=== PATIENT | female | born 1935 | race Caucasian/White ===

== ENCOUNTER 2017-12-18 10:03 | Inpatient (IN) | payer OTHER ==
[~2017-12-18] VITALS: Ht 165.1 cm; Wt 72.6 kg
[~2017-12-18 10:03] MED LIST: ARICEPT10 MG PO; ATIVAN1 MG PO; CELEXA40 MG PO; GLIMEPIRIDE2 MG PO; NAMENDA10 MG PO; NEURONTIN300 MG PO; SEROQUEL300 MG PO; ZANTAC300 MG PO
== END 2017-12-23 19:37 | disposition home or self-care (01) | DRG 331 ==
LOC: SURH 12-20 09:00 → O/R 12-20 09:27 → SURH 12-20 09:39
PROVIDERS: Surgery
PROC: 0DTP4ZZ Resection of Rectum, Percutaneous Endoscopic Approach (ICD-10-PCS; 2017-12-20)
PROC: 0DQR0ZZ Repair Anal Sphincter, Open Approach (ICD-10-PCS; 2017-12-20)
PROC: 0DJD8ZZ Inspection of Lower Intestinal Tract, Via Natural or Artificial Opening Endoscopic (ICD-10-PCS; 2017-12-20)
PROC: 0DTN0ZZ Resection of Sigmoid Colon, Open Approach (ICD-10-PCS; principal; 2017-12-20 09:00)
PROC: 4A033R1 Measurement of Arterial Saturation, Peripheral, Percutaneous Approach (ICD-10-PCS; 2017-12-21)
PROC: 3E0F7GC Introduction of Other Therapeutic Substance into Respiratory Tract, Via Natural or Artificial Opening (ICD-10-PCS; 2017-12-21)
DX: K62.3 Rectal prolapse (principal); R15.9 Full incontinence of feces; E11.9 Type 2 diabetes mellitus without complications; G30.8 Other Alzheimer's disease; F02.80 Dementia in other diseases classified elsewhere, unspecified severity, without behavioral disturbance, psychotic disturbance, mood disturbance, and anxiety; J98.01 Acute bronchospasm; Z78.1 Physical restraint status